=== PATIENT | male | born 1945 | race Caucasian/White ===

== ENCOUNTER 2019-02-23 08:03 | Inpatient (IN) | payer OTHER ==
[~2019-02-23] VITALS: Ht 165.1 cm; Wt 74.8 kg
--- NOTE | 2019-02-23 08:10 | NUR ---
SE RECIBE PT ALERTA Y ORIENTADO EN 3 ESFERAS, EN COMPANIA DE PARAMEDICOS. PARAMEDICOS REFIEREN PTE TIENE ULCERA SACRAL, REFERIDO DE CENTRO APRA DR EDER BURNHAM Y DR SOM HYATT. PT CON LALY DRENANDO A GRAVEDAD ORINA COLOR AMARILLO TURBIO.
[2019-02-23] MEDS ORDERED: COZAAR50 MG (08:30)
[2019-02-23] MEDS ORDERED: PEPCID AC20 MG (08:30)
[2019-02-23] MEDS ORDERED: SYNTHROID50 MCG (08:31)
[2019-02-23] MEDS ORDERED: DIALYVITE 800-1 EACH (08:32)
[2019-02-23] MEDS ORDERED: FEOSOL325 MG (08:32)
[2019-02-23] MEDS ORDERED: ASPIR 8181 MG (08:33)
[2019-02-23] MEDS ORDERED: AMLODIPINE-OLM1 EAC2 (08:33)
[2019-02-23] MEDS ORDERED: FORTAMET500 MG (08:33)
[2019-02-23] MEDS ORDERED: PRE PROTEIN 2030 ML (08:34)
--- NOTE | 2019-02-23 09:08 | NUR ---
MR PAMELA ORIENTA A PT SOBRE TX, ELCUAL REFIERE ENTENDER. SE LE COLECTAN MUESTRAS BAJO MEDIDAS ASEPTICAS PT TOLERA. SE LE COLECTA CULTIVO DE ULCERA SACRAL.
[2019-03-02] MEDS ORDERED: VANCOMYCIN HCL1 GM IV (08:00)
== END 2019-03-02 23:07 | disposition home health service (06) | DRG 463 ==
LOC: ER 08:03 → SURH 10:14 → SEC-K 10:14 → SURH 14:08
PROVIDERS: ADMIT Internal Medicine
PROC: 0JB70ZZ Excision of Back Subcutaneous Tissue and Fascia, Open Approach (ICD-10-PCS; principal; 2019-02-23)
PROC: CP161ZZ Planar Nuclear Medicine Imaging of Pelvis using Technetium 99m (Tc-99m) (ICD-10-PCS; 2019-02-24)
PROC: 02HV33Z Insertion of Infusion Device into Superior Vena Cava, Percutaneous Approach (ICD-10-PCS; 2019-02-25)
PROC: 8E0ZXY6 Isolation (ICD-10-PCS; 2019-02-25)
DX: M46.28 Osteomyelitis of vertebra, sacral and sacrococcygeal region (principal); L89.223 Pressure ulcer of left hip, stage 3; L89.153 Pressure ulcer of sacral region, stage 3; I96 Gangrene, not elsewhere classified; I69.354 Hemiplegia and hemiparesis following cerebral infarction affecting left non-dominant side; I10 Essential (primary) hypertension; B96.29 Other Escherichia coli [E. coli] as the cause of diseases classified elsewhere; B95.2 Enterococcus as the cause of diseases classified elsewhere; B95.61 Methicillin susceptible Staphylococcus aureus infection as the cause of diseases classified elsewhere; B95.4 Other streptococcus as the cause of diseases classified elsewhere; B96.4 Proteus (mirabilis) (morganii) as the cause of diseases classified elsewhere; B96.5 Pseudomonas (aeruginosa) (mallei) (pseudomallei) as the cause of diseases classified elsewhere; E11.65 Type 2 diabetes mellitus with hyperglycemia; Z79.4 Long term (current) use of insulin; Z74.01 Bed confinement status

== ENCOUNTER 2019-03-18 10:12 | Emergency (ER) | payer OTHER ==
[~2019-03-18] VITALS: Ht 167.6 cm; Wt 84.4 kg
[~2019-03-18 10:12] MED LIST: AMLODIPINE-OLM1 EAC2; ASPIR 8181 MG; COZAAR50 MG; DIALYVITE 800-1 EACH; FEOSOL325 MG; FORTAMET500 MG; PEPCID AC20 MG; PRE PROTEIN 2030 ML; SYNTHROID50 MCG; VANCOMYCIN HCL1 GM IV
== END 2019-03-18 11:03 | disposition home or self-care (01) ==
LOC: ER 10:12
DX: Z45.2 Encounter for adjustment and management of vascular access device (principal)